=== PATIENT | female | born 1985 | race Caucasian/White ===

== ENCOUNTER 2017-03-01 14:10 | Emergency (ER) | payer MEDICAID ==
[~2017-03-01] VITALS: Ht 165.1 cm; Wt 84.0 kg
[~2017-03-01 14:10] MED LIST: ESCI20TA10 PO; GABA100C8 PO; SUMA50TA3 PO
[2017-03-01] MEDS ORDERED: SODIUM CHLORIDE FLUSH 10ML SYR IVF ONE (15:30)
[2017-03-01] MEDS ORDERED: SODIUM CHLORIDE 0.9% 1,000ML IVBOLUS ONE (15:30)
[2017-03-01] MEDS ORDERED: ONDANSETRON 2MG/ML, 2ML ONE ×2 (15:58→17:06)
[2017-03-01] MEDS ORDERED: MORPHINE SULFATE 4 MG/ML, 1ML ONE ×2 (15:58→17:01)
[2017-03-01] MEDS ORDERED: ONDANSETRON 2MG/ML, 2ML IVPush ONE ×2 (16:00→17:30)
[2017-03-01] MEDS ORDERED: MORPHINE SULFATE 4 MG/ML, 1ML IVPush ONE (16:00)
[2017-03-01 16:31] LABS: BLOOD UREA NITROGEN 14 mg/dL (7-18)
[2017-03-01] MEDS ORDERED: OMNIPAQUE 350 MG/ML, 100ML BOTTLE ONE (16:35)
[2017-03-01 16:38] LABS: ASPARTATE AMINO TRANSFERASE 21 U/L (15-37)
[2017-03-01] MEDS ORDERED: morphine SULFATE 10 MG/ML, 1ML IVPush ONE (17:30)
[2017-03-01 19:20] VITALS: BP 110/70
== END 2017-03-01 19:33 | disposition home or self-care (01) ==
LOC: ED 15:37
DX: K52.9 Noninfective gastroenteritis and colitis, unspecified (principal); R11.2 Nausea with vomiting, unspecified; G43.909 Migraine, unspecified, not intractable, without status migrainosus
CPT/HCPCS: 36415; 74177; 76700; 80053; 81003; 83690; 84703; 85025; 96361; 96374; 96375; 96376; 99285; J2270; J2405; J7030; Q9967

== ENCOUNTER 2017-03-04 10:21 | Emergency (ER) | payer MEDICAID ==
[~2017-03-04] VITALS: Ht 165.1 cm; Wt 90.0 kg
[2017-03-04] MEDS ORDERED: DIPHENHYDRAMINE 50 MG/ML, 1ML IVPush ONE (11:22)
[2017-03-04] MEDS ORDERED: MAALOX/HYOSCYAMINE/LIDOCAINE 45 ML BOTTLE ONE ×2 (11:26→12:36)
[2017-03-04] MEDS ORDERED: FAMOTIDINE 20 MG/2 ML ONE (11:26)
[2017-03-04] MEDS ORDERED: ONDANSETRON 2MG/ML, 2ML ONE (11:26)
[2017-03-04] MEDS ORDERED: HYDROmorphone 1 MG/ML, 1ML ONE ×2 (11:26→12:36)
[2017-03-04] MEDS: HYDROmorphone 1 MG/ML, 1ML IVPush PRN ×2 (11:29→12:39)
[2017-03-04] MEDS ORDERED: SODIUM CHLORIDE 0.9% 1,000ML IVBOLUS ONE (11:30)
[2017-03-04] MEDS ORDERED: SODIUM CHLORIDE FLUSH 10ML SYR IVF ONE (11:30)
[2017-03-04] MEDS ORDERED: MAALOX/HYOSCYAMINE/LIDOCAINE 45 ML BOTTLE PO ONE (11:30)
[2017-03-04] MEDS ORDERED: ONDANSETRON 2MG/ML, 2ML IVPush ONE (11:30)
[2017-03-04] MEDS ORDERED: FAMOTIDINE 20 MG/2 ML IVP ONE (11:30)
[2017-03-04] MEDS ORDERED: DIPHENHYDRAMINE 50 MG/ML, 1ML ONE (11:34)
[2017-03-04 11:37] VITALS: BP 130/87
[2017-03-04 11:49] LABS: ASPARTATE AMINO TRANSFERASE 16 U/L (15-37); BLOOD UREA NITROGEN 12 mg/dL (7-18)
== END 2017-03-04 12:48 | disposition home or self-care (01) ==
LOC: ED 12:44
DX: R10.13 Epigastric pain (principal); G43.909 Migraine, unspecified, not intractable, without status migrainosus
CPT/HCPCS: 36415; 74020; 80053; 83605; 83690; 85025; 96361; 96374; 96375; 96376; 99285; J1170; J1200; J2405; J7030; 96365; S0028

== ENCOUNTER 2017-03-19 08:00 | Inpatient (IN) | payer MEDICAID ==
[~2017-03-19] VITALS: Ht 165.1 cm; Wt 85.4 kg
[2017-03-19] MEDS ORDERED: MORPHINE SULFATE 4 MG/ML, 1ML ONE ×2 (08:27→09:20)
[2017-03-19] MEDS ORDERED: FAMOTIDINE 20 MG/2 ML ONE (08:28)
[2017-03-19] MEDS ORDERED: PROMETHAZINE 25 MG/ML, 1ML ONE (08:28)
[2017-03-19] MEDS ORDERED: MORPHINE SULFATE 4 MG/ML, 1ML IVPush ONE (08:30)
[2017-03-19] MEDS ORDERED: PROMETHAZINE 25 MG/ML, 1ML IM ONE (08:30)
[2017-03-19] MEDS ORDERED: FAMOTIDINE 20 MG/2 ML IVP ONE (08:30)
[2017-03-19] MEDS ORDERED: SODIUM CHLORIDE FLUSH 10ML SYR IVF ONE (08:30)
[2017-03-19] MEDS ORDERED: SODIUM CHLORIDE 0.9% 1,000ML IVBOLUS ONE (08:30)
[2017-03-19] MEDS ORDERED: LORazepam 2 MG/ML, 1ML IVPush ONE (08:30)
[2017-03-19] MEDS ORDERED: LORazepam 2 MG/ML, 1ML ONE (08:30)
[2017-03-19 08:58] LABS: ASPARTATE AMINO TRANSFERASE 27 U/L (15-37); BLOOD UREA NITROGEN 17 mg/dL (7-18)
[2017-03-19] MEDS ORDERED: PROCHLORPERAZINE 5 MG/ML, 2ML IM ONE (09:00)
[2017-03-19] MEDS ORDERED: PROCHLORPERAZINE 5 MG/ML, 2ML ONE ×2 (09:00→09:11)
[2017-03-19] MEDS: MORPHINE SULFATE 4 MG/ML, 1ML IVPush PRN ×5 (09:28→22:30)
[2017-03-19 11:18] LABS: HCG UR OBC PASS
[2017-03-19] MEDS ORDERED: OMNIPAQUE 350 MG/ML, 100ML BOTTLE ONE (11:50)
[2017-03-19] MEDS ORDERED: METRONIDAZOLE PMX 500MG/100ML 100 ML ONE (12:21)
[2017-03-19] MEDS ORDERED: CIPROFLOXACIN/PMX 400MG/200ML 100 ML IVPB ONE (12:30)
[2017-03-19] MEDS ORDERED: METRONIDAZOLE PMX 500MG/100ML 100 ML IVPB ONE (12:30)
[2017-03-19 13:05] VITALS: BP 97/58
[2017-03-19 13:09] VITALS: BP 97/58
[2017-03-19] MEDS ORDERED: LABETALOL 5MG/ML, 20ML IVPush PRN (14:30)
[2017-03-19] MEDS ORDERED: SUMATRIPTAN 50 MG TABLET PO PRN (14:30)
[2017-03-19] MEDS ORDERED: BISACODYL 10 MG SUPP PR PRN (14:30)
[2017-03-19] MEDS ORDERED: GLUCAGON 1 MG IM PRN (15:30)
[2017-03-19] MEDS ORDERED: DEXTROSE 50%, 50ML SYRINGE IVPush PRN (15:30)
[2017-03-19] MEDS ORDERED: DEXTROSE 4 GM TAB.CHEW PO PRN (15:30)
[2017-03-19] MEDS ORDERED: INSULIN REGULAR 100 UNITS/ML, 3ML VIAL SQ-INSULIN SCH (16:00)
[2017-03-19 16:07] LABS: IS PT STATUS REG ER OR PRE ER? NO
[2017-03-19] MEDS: GABAPENTIN 100 MG CAPSULE PO SCH ×2 (16:20→20:36)
[2017-03-19] MEDS: ENOXAPARIN 40 MG/0.4 ML SQ SCH (16:20)
[2017-03-19] MEDS: NS + 20MEQ KCL 1,000 ML IV SCH (16:53)
[2017-03-19 19:49] VITALS: BP 108/75
[2017-03-19] MEDS: METRONIDAZOLE PMX 500MG/100ML 100 ML IV SCH (20:36)
[2017-03-19] MEDS: FAMOTIDINE 20 MG/2 ML IVPush SCH (20:36)
[2017-03-19] MEDS ORDERED: SODIUM CHLORIDE FLUSH 10ML SYR IVF SCH (21:00)
[2017-03-20] MEDS: CIPROFLOXACIN/PMX 400MG/200ML 200 ML IV SCH ×2 (00:03→12:06)
[2017-03-20 01:35] VITALS: BP 113/78
[2017-03-20] MEDS: ONDANSETRON 2MG/ML, 2ML IVPush PRN ×4 (01:41→20:59)
[2017-03-20] MEDS: MORPHINE SULFATE 4 MG/ML, 1ML IVPush PRN ×8 (01:43→22:47)
[2017-03-20] MEDS: METRONIDAZOLE PMX 500MG/100ML 100 ML IV SCH ×3 (04:25→20:59)
[2017-03-20] MEDS: NS + 20MEQ KCL 1,000 ML IV SCH ×2 (04:25→15:34)
[2017-03-20 06:21] LABS: ASPARTATE AMINO TRANSFERASE 21 U/L (15-37); BLOOD UREA NITROGEN 10 mg/dL (7-18)
[2017-03-20] MEDS: GABAPENTIN 100 MG CAPSULE PO SCH ×3 (08:53→20:59)
[2017-03-20] MEDS: FAMOTIDINE 20 MG/2 ML IVPush SCH ×2 (08:53→20:59)
[2017-03-20] MEDS: CITALOPRAM 20 MG TABLET PO SCH (08:53)
[2017-03-20 09:02] VITALS: BP 115/82
[2017-03-20] MEDS: DOCUSATE 100 MG CAPSULE PO SCH (10:32)
[2017-03-20] MEDS ORDERED: LORazepam 2 MG/ML, 1ML ONE (11:19)
[2017-03-20] MEDS ORDERED: LORazepam 2 MG/ML, 1ML IVPush ONE (11:30)
[2017-03-20 13:28] VITALS: BP 118/86
[2017-03-20] MEDS: ENOXAPARIN 40 MG/0.4 ML SQ SCH (14:30)
[2017-03-20 19:28] VITALS: BP 132/91
[2017-03-20] MEDS: LORazepam 1MG TABLET PO PRN (21:45)
[2017-03-21] MEDS: CIPROFLOXACIN/PMX 400MG/200ML 200 ML IV SCH ×2 (00:04→12:38)
[2017-03-21 02:00] VITALS: BP 129/82
[2017-03-21] MEDS: MORPHINE SULFATE 4 MG/ML, 1ML IVPush PRN ×7 (02:12→21:40)
[2017-03-21] MEDS: NS + 20MEQ KCL 1,000 ML IV SCH ×2 (02:12→12:38)
[2017-03-21] MEDS: ONDANSETRON 2MG/ML, 2ML IVPush PRN ×4 (04:24→21:00)
[2017-03-21] MEDS: METRONIDAZOLE PMX 500MG/100ML 100 ML IV SCH ×3 (05:16→22:56)
[2017-03-21 05:41] LABS: BLOOD UREA NITROGEN 4 mg/dL (7-18)
[2017-03-21 08:00] VITALS: BP 138/82
[2017-03-21] MEDS: LORazepam 1MG TABLET PO PRN ×2 (08:35→16:17)
[2017-03-21] MEDS: GABAPENTIN 100 MG CAPSULE PO SCH ×3 (08:42→21:00)
[2017-03-21] MEDS: CITALOPRAM 20 MG TABLET PO SCH (08:42)
[2017-03-21] MEDS: DOCUSATE 100 MG CAPSULE PO SCH (08:42)
[2017-03-21] MEDS ORDERED: PROMETHAZINE 25MG TABLET PO PRN (10:30)
[2017-03-21] MEDS: HYDROcodone/APAP 5/325 TABLET PO PRN ×4 (11:17→23:28)
[2017-03-21] MEDS: PANTOPROZOLE 40MG TABLET PO SCH (11:17)
[2017-03-21] MEDS ORDERED: PROMETHAZINE 25 MG/ML, 1ML IM PRN (12:00)
[2017-03-21 13:38] VITALS: BP 138/93
[2017-03-21] MEDS: ENOXAPARIN 40 MG/0.4 ML SQ SCH (14:30)
[2017-03-21 19:25] VITALS: BP 130/89
[2017-03-22] MEDS: CIPROFLOXACIN/PMX 400MG/200ML 200 ML IV SCH ×2 (00:05→11:47)
[2017-03-22] MEDS: MORPHINE SULFATE 4 MG/ML, 1ML IVPush PRN ×6 (01:50→23:37)
[2017-03-22] MEDS: NS + 20MEQ KCL 1,000 ML IV SCH ×2 (01:51→11:47)
[2017-03-22] MEDS: ONDANSETRON 2MG/ML, 2ML IVPush PRN ×4 (01:55→23:14)
[2017-03-22 02:15] VITALS: BP 116/81
[2017-03-22] MEDS: HYDROcodone/APAP 5/325 TABLET PO PRN ×4 (05:01→20:34)
[2017-03-22 05:54] LABS: BLOOD UREA NITROGEN 4 mg/dL (7-18)
[2017-03-22] MEDS: METRONIDAZOLE PMX 500MG/100ML 100 ML IV SCH ×3 (06:56→23:14)
[2017-03-22] MEDS ORDERED: POTASSIUM CHLORIDE 20 MEQ TAB.ER.PRT PO ONE (07:00)
[2017-03-22 07:35] VITALS: BP 129/98
[2017-03-22] MEDS: DOCUSATE 100 MG CAPSULE PO SCH (09:00)
[2017-03-22] MEDS: GABAPENTIN 100 MG CAPSULE PO SCH ×3 (09:12→23:14)
[2017-03-22] MEDS: CITALOPRAM 20 MG TABLET PO SCH (09:12)
[2017-03-22] MEDS: LORazepam 1MG TABLET PO PRN (09:12)
[2017-03-22] MEDS: PANTOPROZOLE 40MG TABLET PO SCH (09:12)
[2017-03-22] MEDS: ENOXAPARIN 40 MG/0.4 ML SQ SCH (13:20)
[2017-03-22 13:28] VITALS: BP 124/88
[2017-03-22 18:19] VITALS: BP 114/80
[2017-03-23] MEDS: CIPROFLOXACIN/PMX 400MG/200ML 200 ML IV SCH (01:55)
[2017-03-23 02:00] VITALS: BP 115/77
[2017-03-23] MEDS: HYDROcodone/APAP 5/325 TABLET PO PRN ×4 (02:23→19:57)
[2017-03-23] MEDS: NS + 20MEQ KCL 1,000 ML IV SCH (05:19)
[2017-03-23 06:03] LABS: BLOOD UREA NITROGEN 7 mg/dL (7-18)
[2017-03-23] MEDS: ONDANSETRON 2MG/ML, 2ML IVPush PRN ×2 (07:39→12:28)
[2017-03-23] MEDS: MORPHINE SULFATE 4 MG/ML, 1ML IVPush PRN (07:45)
[2017-03-23] MEDS: METRONIDAZOLE PMX 500MG/100ML 100 ML IV SCH (07:47)
[2017-03-23] MEDS: CITALOPRAM 20 MG TABLET PO SCH (07:48)
[2017-03-23] MEDS: DOCUSATE 100 MG CAPSULE PO SCH (07:48)
[2017-03-23] MEDS: PANTOPROZOLE 40MG TABLET PO SCH (07:48)
[2017-03-23] MEDS: GABAPENTIN 100 MG CAPSULE PO SCH ×3 (07:48→23:05)
[2017-03-23 07:53] VITALS: BP 126/87
[2017-03-23] MEDS: LORazepam 1MG TABLET PO PRN ×2 (07:55→23:06)
[2017-03-23] MEDS ORDERED: POLYETHYLENE GLYCOL 17 GM PACKET PO SCH (10:00)
[2017-03-23] MEDS: ENOXAPARIN 40 MG/0.4 ML SQ SCH (14:30)
[2017-03-23] MEDS: CIPROFLOXACIN 500 MG TABLET PO SCH ×2 (14:35→23:05)
[2017-03-23] MEDS: metroNIDAZOLE 500 MG TABLET PO SCH (15:41)
[2017-03-23 16:32] VITALS: BP 135/92
[2017-03-23] MEDS: ONDANSETRON ODT 4 MG PO PRN (19:01)
[2017-03-23 20:00] VITALS: BP 127/82
[2017-03-24] MEDS: metroNIDAZOLE 500 MG TABLET PO SCH ×2 (00:45→08:00)
[2017-03-24] MEDS: HYDROcodone/APAP 5/325 TABLET PO PRN ×3 (00:45→11:16)
[2017-03-24] MEDS: ONDANSETRON ODT 4 MG PO PRN ×2 (00:45→07:59)
[2017-03-24 03:54] VITALS: BP 107/73
[2017-03-24 07:24] VITALS: BP 107/74
[2017-03-24] MEDS: GABAPENTIN 100 MG CAPSULE PO SCH (07:59)
[2017-03-24] MEDS: DOCUSATE 100 MG CAPSULE PO SCH (07:59)
[2017-03-24] MEDS: PANTOPROZOLE 40MG TABLET PO SCH (08:00)
[2017-03-24] MEDS: CIPROFLOXACIN 500 MG TABLET PO SCH (08:00)
[2017-03-24] MEDS: CITALOPRAM 20 MG TABLET PO SCH (08:00)
[2017-03-24] MEDS ORDERED: POLYETHYLENE GLYCOL 17 GM PACKET PO SCH (09:00)
[2017-03-24] MEDS ORDERED: PNEUMOCOCCAL 23 VACCINE IM-VACC ONE (10:00)
[2017-03-24] MEDS ORDERED: POLY17PO5 PO (10:39)
[2017-03-24] MEDS ORDERED: HYDR-3240 PO (10:39)
[2017-03-24] MEDS ORDERED: METR500T PO (10:39)
[2017-03-24] MEDS ORDERED: ONDA4TAB13 PO (10:39)
[2017-03-24] MEDS ORDERED: CIPR500T87 PO (10:39)
[2017-03-24] MEDS ORDERED: PANT40TA5 PO (10:39)
== END 2017-03-24 11:48 | disposition home or self-care (01) | DRG 392 ==
LOC: ED 08:35 → EDIP 12:22 → 3NE 12:59
PROVIDERS: ADMIT Internal Medicine; ATTEND Internal Medicine
DX: K52.9 Noninfective gastroenteritis and colitis, unspecified (principal); F12.90 Cannabis use, unspecified, uncomplicated; F41.9 Anxiety disorder, unspecified; G43.909 Migraine, unspecified, not intractable, without status migrainosus; M54.30 Sciatica, unspecified side; G62.9 Polyneuropathy, unspecified; K76.0 Fatty (change of) liver, not elsewhere classified; K21.9 Gastro-esophageal reflux disease without esophagitis; M46.1 Sacroiliitis, not elsewhere classified; K63.9 Disease of intestine, unspecified; E87.6 Hypokalemia; F43.10 Post-traumatic stress disorder, unspecified; K59.00 Constipation, unspecified; E66.9 Obesity, unspecified; D64.9 Anemia, unspecified; Z83.3 Family history of diabetes mellitus; Z87.891 Personal history of nicotine dependence; Z68.31 Body mass index [BMI] 31.0-31.9, adult
CPT/HCPCS: 36415; 74177; 76700; 80048; 80053; 81003; 81025; 82962; 83036; 83605; 83690; 83735; 84100; 84484; 85025; 87046; 89055; 90732; 93005; 96361; 96365; 96372; 96375; J0744; J1650; J2405; J2550; J3480; Q0162; Q0169; Q9967; J0780; J2060; J7030; S0028

== ENCOUNTER 2017-04-25 06:27 | Emergency (ER) | payer MEDICAID ==
[~2017-04-25] VITALS: Ht 165.1 cm; Wt 80.1 kg
[~2017-04-25 06:27] MED LIST changes: +CIPR500T87 PO; +GABA-826 PO; -GABA100C8 PO; +HYDR-3240 PO; +METR500T PO; +ONDA4TAB13 PO; +PANT40TA5 PO; +POLY17PO5 PO
[2017-04-25] MEDS ORDERED: HYDROmorphone 1 MG/ML, 1ML ONE ×2 (07:11→09:46)
[2017-04-25] MEDS ORDERED: LORazepam 2 MG/ML, 1ML ONE (07:12)
[2017-04-25] MEDS ORDERED: ONDANSETRON 2MG/ML, 2ML ONE (07:12)
[2017-04-25] MEDS ORDERED: MAALOX/HYOSCYAMINE/LIDOCAINE 45 ML BOTTLE ONE (07:13)
[2017-04-25] MEDS: HYDROmorphone 1 MG/ML, 1ML IVPush PRN ×2 (07:17→09:48)
[2017-04-25] MEDS ORDERED: LORazepam 2 MG/ML, 1ML IVPush ONE (07:30)
[2017-04-25] MEDS ORDERED: SODIUM CHLORIDE 0.9% 1,000ML IVBOLUS ONE (07:30)
[2017-04-25] MEDS ORDERED: MAALOX/HYOSCYAMINE/LIDOCAINE 45 ML BOTTLE PO ONE (07:30)
[2017-04-25] MEDS ORDERED: ONDANSETRON 2MG/ML, 2ML IVPush ONE (07:30)
[2017-04-25] MEDS ORDERED: SODIUM CHLORIDE FLUSH 10ML SYR IVF ONE (07:30)
[2017-04-25] MEDS ORDERED: OMNIPAQUE 350 MG/ML, 100ML BOTTLE ONE (08:06)
[2017-04-25 09:52] VITALS: BP 110/74
== END 2017-04-25 10:04 | disposition home or self-care (01) ==
LOC: ED 08:52
DX: R10.13 Epigastric pain (principal); Z90.89 Acquired absence of other organs
CPT/HCPCS: 74177; 96361; 96374; 96375; 96376; 99285; J1170; J2060; J2405; J7030; Q9967

== ENCOUNTER 2018-05-02 18:00 | Emergency (ER) | payer SELFPAY ==
[~2018-05-02] VITALS: Ht 165.1 cm; Wt 73.6 kg
[2018-05-02 18:01] VITALS: BP 128/83
== END 2018-05-02 18:36 | disposition home or self-care (01) ==
LOC: ED 18:20
DX: T16.2XXA Foreign body in left ear, initial encounter (principal); X58.XXXA Exposure to other specified factors, initial encounter; Y93.89 Activity, other specified; Y92.89 Other specified places as the place of occurrence of the external cause; Y99.8 Other external cause status
CPT/HCPCS: 99281

== ENCOUNTER 2021-01-04 19:30 | Emergency (ER) | payer MEDICAID, OTHER ==
[~2021-01-04] VITALS: Ht 162.6 cm; Wt 64.0 kg
[~2021-01-04 19:30] MED LIST changes: +HYDR-1067 PO; -HYDR-3240 PO; -PANT40TA5 PO; +PANT40TA6 PO
[2021-01-04] MEDS ORDERED: ONDANSETRON 2MG/ML, 2ML ONE (20:06)
[2021-01-04] MEDS ORDERED: FAMOTIDINE 20 MG/2 ML ONE (20:09)
[2021-01-04 20:14] LABS: BASOPHILS % (AUTO) 1 % (0-1); EOSINOPHILS % (AUTO) 0 % (1-7); LYMPHOCYTES % (AUTO) 7 % (22-44); MEAN CORPUSCULAR HEMOGLOBIN 28.4 pg (27.0-34.8); MEAN CORPUSCULAR HGB CONC 33.6 g/dL (32.4-35.8); MEAN PLATELET VOLUME 9.6 fL (7.4-10.4); MONOCYTES % (AUTO) 1 % (2-9); NEUTROPHILS % (AUTO) 92 % (42-75); PLATELET COUNT 300 x10^3/uL (130-400); RED BLOOD COUNT 4.78 x10^6/uL (3.82-5.3)
[2021-01-04 20:17] LABS: MD NO
[2021-01-04 20:28] LABS: ALANINE AMINOTRANSFERASE 27 U/L (12-78); ALBUMIN 4.9 g/dL (3.4-5.0); ANION GAP 12 mmol/L (5-15); CALCIUM 9.9 mg/dL (8.5-10.1); CHLORIDE 106 mmol/L (98-107); CREATININE 0.98 mg/dL (0.55-1.02)
[2021-01-04] MEDS ORDERED: SODIUM CHLORIDE 0.9% 1,000ML IVBOLUS ONE (20:30)
[2021-01-04] MEDS ORDERED: SODIUM CHLORIDE FLUSH 10ML SYR IVF ONE (20:30)
[2021-01-04] MEDS ORDERED: ONDANSETRON 2MG/ML, 2ML IVPush ONE (20:30)
[2021-01-04] MEDS ORDERED: FAMOTIDINE 20 MG/2 ML IVPush ONE (20:30)
[2021-01-04 20:32] LABS: ALKALINE PHOSPHATASE 69 U/L (45-117); BILIRUBIN,TOTAL 0.8 mg/dL (0.2-1.0); TOTAL PROTEIN 9.1 g/dL (6.4-8.2)
[2021-01-04] MEDS ORDERED: MORPHINE SULFATE 4 MG/ML, 1ML ONE (20:41)
[2021-01-04 20:58] LABS: HCG UR SG 1.033 (1.003-1.030)
[2021-01-04 20:59] LABS: MICROSCOPIC INDICATED
[2021-01-04] MEDS ORDERED: MORPHINE SULFATE 4 MG/ML, 1ML IVPush PRN (21:00)
[2021-01-04 21:22] VITALS: BP 128/84
--- NOTE | 2021-01-04 21:24 | NUR ---
pt in bed with no signs or symptoms of acute distress noted respirations even and unlabored, complaining of mild nausea and bilateral leg pain. md requesting for po challenge, pt provided a half cup of water and instructed to sip on it slowly. pt agrees, no signs or symptoms of acute dsitress noted respirations even and unlabored
--- NOTE | 2021-01-04 22:00 | NUR ---
pt able to drink water without vomiting, states that shes feeling better. in bed with cell phone in hand no signs or symptoms of acute distress noted respirations even and unlabored
== END 2021-01-04 22:47 | disposition home or self-care (01) ==
LOC: ED 20:00
DX: R11.2 Nausea with vomiting, unspecified (principal); R19.7 Diarrhea, unspecified; R10.84 Generalized abdominal pain; Z90.89 Acquired absence of other organs
CPT/HCPCS: 36415; 74021; 80053; 81001; 81025; 83690; 84703; 85025; 96361; 96374; 96375; 99284; J2270; J2405; J7030

== ENCOUNTER 2021-01-27 17:46 | Emergency (ER) | payer MEDICAID ==
[~2021-01-27] VITALS: Ht 165.1 cm; Wt 64.6 kg
--- NOTE | 2021-01-27 18:17 | NUR ---
PT HAS CO ABDOMINAL PAIN W N/V. STARTED YESTERDAY. RIBS ALSO HURT. DENIES PAINFUL URINATION.
--- NOTE | 2021-01-27 18:49 | NUR ---
REPORT TO FARRAH
[2021-01-27] MEDS ORDERED: MORPHINE SULFATE 4 MG/ML, 1ML ONE (18:57)
[2021-01-27] MEDS ORDERED: ONDANSETRON 2MG/ML, 2ML ONE ×2 (18:57→20:26)
[2021-01-27] MEDS ORDERED: ONDANSETRON 2MG/ML, 2ML IVPush ONE ×2 (19:00→20:30)
[2021-01-27] MEDS ORDERED: SODIUM CHLORIDE 0.9% 1,000ML IVBOLUS ONE (19:00)
[2021-01-27] MEDS ORDERED: SODIUM CHLORIDE FLUSH 10ML SYR IVF ONE (19:00)
[2021-01-27] MEDS ORDERED: MORPHINE SULFATE 4 MG/ML, 1ML IVPush PRN (19:00)
[2021-01-27 19:15] LABS: BASOPHILS % (AUTO) 0 % (0-1); EOSINOPHILS % (AUTO) 0 % (1-7); LYMPHOCYTES % (AUTO) 9 % (22-44); MEAN CORPUSCULAR HEMOGLOBIN 28.5 pg (27.0-34.8); MEAN CORPUSCULAR HGB CONC 34.1 g/dL (32.4-35.8); MEAN PLATELET VOLUME 9.5 fL (7.4-10.4); MONOCYTES % (AUTO) 2 % (2-9); NEUTROPHILS % (AUTO) 89 % (42-75); PLATELET COUNT 285 x10^3/uL (130-400); RED BLOOD COUNT 4.68 x10^6/uL (3.82-5.3); RED CELL DISTRIBUTION WIDTH 13.9 % (9.6-15.2)
[2021-01-27 19:24] LABS: MICROSCOPIC INDICATED
[2021-01-27 19:26] LABS: ALANINE AMINOTRANSFERASE 21 U/L (12-78); ALBUMIN 4.3 g/dL (3.4-5.0); ANION GAP 8 mmol/L (5-15); CALCIUM 9.9 mg/dL (8.5-10.1); CHLORIDE 107 mmol/L (98-107); CREATININE 0.63 mg/dL (0.55-1.02)
--- NOTE | 2021-01-27 19:29 | NUR ---
IV started, IVF infusing, pt provided urine specimen. Labs drawn from IV and sent. Medicated per order. Pt with slight itching to forearm and slight redness post morphine admin. IVF flushing through, pt has no sob, no other rash. Will continue to monitor if worsening will request benadryl. Mother at bedside.
[2021-01-27 19:31] LABS: ALKALINE PHOSPHATASE 60 U/L (45-117); BILIRUBIN,TOTAL 0.5 mg/dL (0.2-1.0); TOTAL PROTEIN 8.6 g/dL (6.4-8.2)
[2021-01-27 19:34] LABS: MD SCAN
--- NOTE | 2021-01-27 19:51 | NUR ---
Pt feels better, is crying on phone says is not related to pain. Reports decrease in pain and nausea. VSS. AIDET provided.
[2021-01-27] MEDS ORDERED: ACETAMINOPHEN 325 MG TABLET ONE (20:26)
[2021-01-27] MEDS ORDERED: ACETAMINOPHEN 325 MG TABLET PO ONE (20:30)
--- NOTE | 2021-01-27 20:33 | NUR ---
IVF infused, pt doing po challenge with water.
[2021-01-27 20:43] VITALS: BP 135/78
--- NOTE | 2021-01-27 20:51 | NUR ---
iv dc cath intact, pt feels better, vss. Rx and instruct pt to return to ER if worse or concerns.
== END 2021-01-27 20:53 | disposition home or self-care (01) ==
LOC: ED 18:38
DX: K85.90 Acute pancreatitis without necrosis or infection, unspecified (principal); R11.2 Nausea with vomiting, unspecified; R10.9 Unspecified abdominal pain; G43.909 Migraine, unspecified, not intractable, without status migrainosus; Z90.49 Acquired absence of other specified parts of digestive tract
CPT/HCPCS: 36415; 80053; 81001; 83690; 84703; 85025; 93005; 96361; 96374; 96375; 96376; 99284; J2270; J2405; J7030

== ENCOUNTER 2021-04-10 18:27 | Emergency (ER) | payer MEDICAID ==
[~2021-04-10] VITALS: Ht 162.6 cm; Wt 67.5 kg
[~2021-04-10 18:27] MED LIST changes: -HYDR-1067 PO; +HYDR-2214 PO
[2021-04-10 18:36] VITALS: BP 127/80
[2021-04-10] MEDS ORDERED: PROPARACAINE OPHTH 0.5%, 15ML ONE (19:26)
[2021-04-10] MEDS ORDERED: FLUORESCEIN OPHTHALMIC 1 MG STRIP ONE (19:26)
[2021-04-10] MEDS ORDERED: PROPARACAINE OPHTH 0.5%, 15ML RIGHTEYE ONE (19:30)
[2021-04-10] MEDS ORDERED: FLUORESCEIN OPHTHALMIC 1 MG STRIP RIGHTEYE ONE (19:30)
== END 2021-04-10 20:40 | disposition home or self-care (01) ==
LOC: ED 19:20
DX: H57.11 Ocular pain, right eye (principal); F17.210 Nicotine dependence, cigarettes, uncomplicated
CPT/HCPCS: 99406